=== PATIENT | male | born 1970 | race Caucasian/White ===

== ENCOUNTER 2018-02-12 09:43 | Emergency (ER) | payer SELFPAY ==
[~2018-02-12] VITALS: Ht 185.4 cm; Wt 118.7 kg
[~2018-02-12 09:43] MED LIST: FLEXERIL5 MG PO; ULTRAM50 MG PO
[2018-02-12 10:38] LABS: HEMATOCRIT 40.4 % (38.0-50.0); HEMOGLOBIN 13.6 G/DL (12.5-16.6); MCH 28.2 PG (29.0-34.0); MCHC 33.7 G/DL (30.0-36.0); MCV 83.8 FL (86-99); PLATELET COUNT 380 K/uL (156-360); RBC DIS.WIDTH-CV 14.5 % (11.8-14.6); RBC DIS.WIDTH-SD 44.1 % (39-53); RED BLOOD COUNT 4.82 M/uL (4.00-5.50); WHITE BLOOD COUNT 12.6 K/uL (4.1-10.2)
[2018-02-12 10:49] LABS: CHLORIDE 105 mEq/L (99-109); POTASSIUM 3.5 mEq/L (3.7-5.4); SODIUM 139 mEq/L (136-147)
[2018-02-12 10:50] LABS: GLUCOSE 126 mg/dL (70-99)
[2018-02-12 10:54] LABS: CREATININE 1.1 mg/dL (0.6-1.3); GFR ESTIMATE (CALCULATED) > 59 mL/min/ (58.99-99999)
[2018-02-12 10:55] LABS: UREA NITROGEN (BUN) 14 mg/dL (9-23)
[2018-02-12 10:58] LABS: TROP-I INTERPRETATION NEGATIVE; TROPONIN-I < 0.01 ng/mL (0.0-0.30)
[2018-02-12 12:02] LABS: TROP-I INTERPRETATION NEGATIVE; TROPONIN-I < 0.01 ng/mL (0.0-0.30)
[2018-02-12 15:04] VITALS: BP 136/86
== END 2018-02-12 15:04 | disposition home or self-care (01) ==
LOC: EME 09:43
PROVIDERS: Emergency Medicine
DX: R51 Headache (principal); R07.9 Chest pain, unspecified
CPT/HCPCS: 70450; 71046; 80048; 84484; 85027; 93005; 99281; 99285; J1200; J2765; J7030